=== PATIENT | female | born 1980 | race Caucasian/White ===

== ENCOUNTER 2017-10-10 08:32 | Outpatient (CLI) | payer MEDICAID | END 2017-10-10 08:33 | disposition home or self-care (01) | LOC: BICMAMMO 08:32 | PROVIDERS: ATTEND Nurse Practitioner Women's Health | DX: N63.10 Unspecified lump in the right breast, unspecified quadrant (principal); Z80.3 Family history of malignant neoplasm of breast | CPT/HCPCS: 77066; G0279 ==

== ENCOUNTER 2017-11-15 11:40 | Inpatient (IN) | payer MEDICAID, SELFPAY ==
[2017-11-15] MEDS ORDERED: Promethazine HCl 25 MG/ML VIAL ONE (12:42)
[2017-11-15 12:52] LABS: BHCG - Serum Negative (NEGATIVE); Pregs Control Background? CLEAR/WHITE (CLR/WHITE); Pregs Control Bar Appear? YES (CONTROL BAR)
[2017-11-15 12:57] LABS: Band 1 % (5-11); Hemoglobin 13.8 g/dL (12.0-16.0); Large Platelets SLIGHT; Lymphocytes 18 % (21-51); MDiff Complete? YES; Mean Corpuscular Hemoglobin 29.7 pg (27.0-31.0); Mean Corpuscular Volume 84.8 fL (78.0-98.0); Mean Platelet Volume 12.8 fL (7.4-10.4); Monocytes 5 % (0-10); Neutrophil 74 % (42-75); PLT Morphology Comment Appears Adequate; Platelet Count 197 thou/uL (130-400); RBC Distribution Width 11.4 % (11.5-14.5); Reactive Lymphocytes 2 % (0-10); Red Blood Cell (RBC) Count 4.65 mill/uL (4.20-5.40); Vacuoles SLIGHT; White Blood Cell (WBC) Count 14.6 thou/uL (4.8-10.8)
[2017-11-15 13:02] LABS: ALT (SGPT) 15 U/L (8-55); AST (SGOT) 15 U/L (5-34); Albumin 4.2 g/dL (3.5-5.0); Alkaline Phosphatase 51 U/L (40-150); Anion Gap 15 mmol/L (10-20); BUN (Urea Nitrogen) 9 mg/dL (7.0-18.7); Bilirubin, Total 0.7 mg/dL (0.2-1.2); Calc. Creatinine Clearance 0 mL/min (70-130); Calcium 9.6 mg/dL (7.8-10.44); Carbon Dioxide 16 mmol/L (22-29); Chloride 113 mmol/L (98-107); Estimated GFR-MDRD 86; Globulin 3.1 g/dL (2.4-3.5); Glucose 103 mg/dL (70-105); Lipase 16 U/L (8-78); Potassium 3.3 mmol/L (3.5-5.1); Protein, Total 7.3 g/dL (6.0-8.3); Sodium 141 mmol/L (136-145)
[2017-11-15 14:04] LABS: Bilirubin Negative (Negative); Blood, Urine Trace (Negative); Clarity Slightly Cloudy (Clear); Glucose, Urine (Dipstick) Negative (Negative); Leukocyte Negative (Negative); Nitrite Negative (Negative); Protein, Urine (Dipstick) Negative (Neg-Trace)
[2017-11-15 14:09] LABS: Bacteria/HPF 1+ HPF (None Seen)
[2017-11-15] MEDS ORDERED: Iopamidol 370 76% 100 ML VIAL ONE (14:50)
[2017-11-15] MEDS ORDERED: Sodium Chloride 0.9% 100 ML ONE (15:35)
[2017-11-15] MEDS ORDERED: Piperacillin/Tazobactam 4.5 GM VIAL ONE (15:35)
--- NOTE | 2017-11-15 15:36 | CT ---
CT OF THE ABDOMEN AND PELVIS WITH IV CONTRAST: INDICATION: Abdominal pain with diarrhea. FINDINGS: No comparisons are available. There is mild bibasilar atelectasis. The gallbladder is surgically absent. No focal hepatic lesion is evident. There is a 1.4 cm hypoden sity in the pancreatic body. The adrenal glands and kidneys appear within normal limits. The spleen is normal-appearing. No free fluid or enlarged lymph nodes are evident. There is wall thickening with scattered diverticula involving the descending colon. No drainable flu id collection is evident. The appendix is surgically absent. The bladder, rectum, and perirectal soft tissues are unremarkable. No definite acute osseous abnorma lity is evident. IMPRESSION: 1. Wall thickening with colonic diverticulosis involving descending colon suspicious for diverticuli tis. No drainable fluid collection is evident. 2. Hypodense lesion involving the pancreatic body, incompletely characterized. This has contrast-en hanced Hounsfield characteristic is 15. Findings may reflect a small cyst adenoma. [facility] is recommended for additional characterization. 3. Cholecystectomy and appendectomy. CODE T POS: [facility]
[2017-11-15] MEDS ORDERED: HYDROcodone/Acetaminophen 5/325 mg Tablet ONE (18:28)
[2017-11-15 19:31] VITALS: BMI 36.8
[2017-11-15] MEDS ORDERED: HYDROcodone/Acetaminophen 5/325 mg Tablet PO PRN ×2 (19:34)
[2017-11-15] MEDS ORDERED: Ondansetron ODT 4 MG TAB SL PRN (19:34)
[2017-11-15] MEDS ORDERED: Dextrose 5 %-0.45 % NaCl 1,000 ML IV SCH (19:45)
[2017-11-15] MEDS ORDERED: Acetaminophen 325 MG TAB PO PRN (19:56)
[2017-11-15] MEDS: Magnesium Oxide 250 MG TAB PO SCH (20:22)
[2017-11-15] MEDS: Topiramate 100 MG TAB PO SCH (20:23)
[2017-11-15] MEDS: Bupropion 150 MG SR TAB PO SCH (20:24)
[2017-11-15] MEDS ORDERED: SELENIUM 100 MCG PO SCH (21:00)
--- NOTE | 2017-11-15 22:52 | HP ---
CODE STATUS: FULL RESUSCITATION. TIME OF EVALUATION: 10:35 p.m. CHIEF COMPLAINT: Left lower abdominal pain. PRIMARY CARE PHYSICIAN: Cameron. HISTORY OF PRESENT ILLNESS: This is a 37-year-old female patient with past medical history of endome triosis, seizures. She came to the hospital after having moderate left-sided abdominal pain, that hendricks s been gradually getting worse, with no clear triggers, no alleviating factors. The symptoms have be en present for 3 weeks. The patient reports associated diarrhea that is mostly mucus. No specific r adiation. REVIEW OF SYSTEMS: Constitutional: No fever. The patient reported no chill, generalized weakness. Respiratory: No cough or sputum production. No shortness of breath. Cardiovascular: No chest warner n, palpitations, or shortness of breath. Gastrointestinal: The patient reported nausea. No vomitin g. She has diarrhea, abdominal pain, left lower quadrant. HAZ TECH: No dizziness, headache or feeling l ightheaded. Genitourinary: No burning on urination. Extremities: No leg swelling. All other syst ems were reviewed and were negative except for the findings mentioned above. PAST MEDICAL HISTORY: Positive for endometriosis, generalized seizures. PAST SURGICAL HISTORY: Laparoscopic ____ due to endometriosis. PSYCHIATRIC HISTORY: Anxiety and depression. SOCIAL HISTORY: No smoking history, no drugs, no alcohol. FAMILY HISTORY: Mother has diverticulosis, endometriosis. Father has melanoma. ALLERGIES: No known drug allergies. REPORTED MEDICATIONS: Nexium, Topamax, Wellbutrin. PHYSICAL EXAMINATION: VITAL SIGNS: On presentation, blood pressure 134/75 with heart rate 93, respiratory rate was 16, tem perature 98.7, pain is 8/10, oxygen saturation 99% on room air. GENERAL APPEARANCE: The patient is alert, oriented, in mild distress due to pain. HEENT: Eyes, normal conjunctivae. Moist oral mucosa. Anicteric. NECK: No JVD. RESPIRATORY: Bilateral air entry. No rales or wheezing. Symmetric expansion. CARDIOVASCULAR: Normal rate, regular rhythm. No murmurs, no gallop, no edema. ABDOMEN: Soft, normal bowel sounds. MUSCULOSKELETAL: Baseline range of motion and strength. No tenderness. SKIN: Warm and intact. No pallor, no rash, no redness. NEUROLOGIC: Baseline sensory. No evidence of any new focal weakness. Baseline speech. Cranial ner ves seem to be intact. PSYCHIATRIC: The patient is in good mood. No anxiety, oriented, optimal judgment. IMAGING: Radiology report was reviewed. The patient has pancreatic hypodensity is incompletely sangeetha acterized, so we will recommend outpatient MRI for this follow up as per radiologist. Wall thickenin g of the ascending colon with diverticula, suggesting diverticulitis. No abscess or perforation. LABORATORY DATA: Labs were reviewed. White count 14.6 with hemoglobin 13.8, MCV 84, platelet count 197. Sodium 141, potassium 3.3, chloride 113, carbon dioxide 16, anion gap 15, BUN 9, creatinine 0.7 6, GFR 86. LFTs were normal. UA was done. The patient has white count of 4-6. ASSESSMENT AND PLAN: The patient will be placed in the hospital with following medical problems. 1. Acute diverticulitis, seen on the CAT scan, the patient is receiving antibiotics, follow up cultu res, adjust treatment as needed. 2. Possible early stage of sepsis secondary to diverticulitis. The patient has elevated white count of 14, with reported heart rate above 90s, treatment as above. Hydration. 3. Hypokalemia. Potassium 3.3, this is likely secondary to diarrhea, we will replace electrolytes a s needed, this is mild. 4. Non-anion gap metabolic acidosis, with bicarbonate 16, likely due to loss of bicarbonate during d iarrhea. We will treat the underlying condition. 5. Possible urinary tract infection. The patient has white cells in the urine 4-6, we will follow c ultures. The patient is taking antibiotics. 6. Deep venous thrombosis prophylaxis. 7. Seizures. The patient has reported that benzodiazepines ____ seizures, we will reconcile home me dications.
[2017-11-15] MEDS ORDERED: Piperacillin/Tazobactam 3.375 GM in Sodium Chloride 0.9% 100 ML IVPB SCH (23:59)
[2017-11-16] MEDS: Piperacillin/Tazobactam 3.375 GM in Sodium Chloride 0.9% 100 ML IVPB SCH ×5 (00:15→23:32)
[2017-11-16] MEDS ORDERED: HYDROcodone/Acetaminophen 5/325 mg Tablet PO PRN (00:42)
[2017-11-16] MEDS: HYDROcodone/Acetaminophen 5/325 mg Tablet PO PRN ×6 (00:52→23:27)
[2017-11-16] MEDS: Dextrose 5 %-0.45 % NaCl 1,000 ML IV SCH ×4 (02:45→23:34)
[2017-11-16] MEDS: Ondansetron HCl/PF 4 MG/2 ML Vial IVP PRN ×4 (03:12→23:33)
[2017-11-16 04:43] LABS: #Eosinphils 0.1 thou/uL (0.0-0.7); #Lymphocytes 3.6 thou/uL (1.20-3.40); #Monocytes 1.1 thou/uL (0.11-0.59); #Neutrophils 7.9 thou/uL (1.40-6.50); %Basophils 0.3 % (0.0-1.0); %Eosinophils 1.2 % (0.0-10.0); %Lymphocytes 28.2 % (21.0-51.0); %Monocytes 8.4 % (0.0-10.0); Hemoglobin 11.1 g/dL (12.0-16.0); Mean Corpuscular HGB CONC 34.4 g/dL (32.0-36.0); Mean Corpuscular Hemoglobin 31.8 pg (27.0-31.0); Mean Corpuscular Volume 92.4 fL (78.0-98.0); Platelet Count 143 thou/uL (130-400); RBC Distribution Width 12.3 % (11.5-14.5); White Blood Cell (WBC) Count 12.7 thou/uL (4.8-10.8)
[2017-11-16 04:59] LABS: Anion Gap 11 mmol/L (10-20); BUN (Urea Nitrogen) 5 mg/dL (7.0-18.7); Calc. Creatinine Clearance 145 mL/min (70-130); Calcium 8.1 mg/dL (7.8-10.44); Carbon Dioxide 16 mmol/L (22-29); Chloride 116 mmol/L (98-107); Estimated GFR-MDRD 87; Glucose 98 mg/dL (70-105); Sodium 140 mmol/L (136-145)
[2017-11-16] MEDS ORDERED: Promethazine HCl 12.5 MG in Sodium Chloride 0.9% 50 ML IVPB PRN (05:08)
[2017-11-16 05:14] LABS: Potassium 2.9 mmol/L (3.5-5.1)
[2017-11-16] MEDS ORDERED: Potassium Chloride 20 MEQ TAB PO SCH (07:45)
[2017-11-16] MEDS: Bupropion 150 MG SR TAB PO SCH ×2 (08:12→20:43)
[2017-11-16] MEDS: Potassium Chloride 20 MEQ TAB PO SCH ×3 (08:13→20:42)
[2017-11-16] MEDS: Enoxaparin Sodium 40 MG/0.4 ML SYRINGE SC SCH (08:15)
[2017-11-16] MEDS: Topiramate 100 MG TAB PO SCH ×2 (08:24→20:43)
[2017-11-16] MEDS ORDERED: [UNRECOGNIZED DRUG - OTHER] PO SCH (09:00)
--- NOTE | 2017-11-16 11:13 | PDOC.PN ---
- Subjective Encounter Start Date: 11/16/17 Encounter Start Time: 09:35 Subjective: has abd pain over left quadrants -: loss of appetite, still has some nausea - Objective Resuscitation Status: Resuscitation Status FULL:Full Resuscitation MAR Reviewed: Yes Vital Signs & Weight: Vital Signs (12 hours) Temp Pulse Resp BP Pulse Ox 11/16/17 08:00 98.1 F 63 16 98 11/16/17 07:45 98.1 F 63 16 96/66 98 11/16/17 04:28 97.9 F 75 16 96/62 96 11/15/17 23:28 98.1 F 74 18 98/65 97 Weight Weight 195 lb I&O: 11/15/17 11/16/17 11/17/17 06:59 06:59 06:59 Intake Total 2019 Output Total 104 Balance 1915 Result Diagrams: 11/16/17 04:14 11/16/17 04:14 Phys Exam - Physical Examination HEENT: PERRLA, sclera anicteric Neck: no JVD, supple Respiratory: no wheezing, no rales Cardiovascular: RRR, no significant murmur Gastrointestinal: soft, no distention, positive bowel sounds left quadrant pain, no rigidity or guarding Musculoskeletal: no edema, pulses present Neurological: non-focal, moves all 4 limbs Psychiatric: normal affect, A&O x 3 Dx/Plan (1) Acute diverticulitis Code(s): K57.92 - DVTRCLI OF INTEST, PART UNSP, W/O PERF OR ABSCESS W/O BLEED Status: Acute (2) Hypokalemia Code(s): E87.6 - HYPOKALEMIA Status: Acute (3) Metabolic acidosis Code(s): E87.2 - ACIDOSIS Status: Acute (4) Moderate dehydration Code(s): E86.0 - DEHYDRATION Status: Acute - Plan is on zosyn -: CT abd results noted -: GI opinion -: is on zofran, phenergan, norco, morphine prn -: replace K, iv hydration, liq diet * . Review of Systems - Medications/Allergies Allergies/Adverse Reactions: Allergies Allergy/AdvReac Type Severity Reaction Status Date / Time Benzodiazepines Allergy Severe Verified 11/15/17 19:23 Medications: Current Medications Acetaminophen (Tylenol) 650 mg PO Q4H PRN PRN Reason: Headache/Fever or Pain Hydrocodone Bitart/Acetaminophen ([place] 5/325) 1 tab PO Q4H PRN PRN Reason: Mild-Moderate Pain (1-5) Hydrocodone Bitart/Acetaminophen ([place] 5/325) 2 tab PO Q4H PRN PRN Reason: Moderate to Severe Pain (6-10) Last Admin: 11/16/17 10:19 Dose: 2 tab Ascorbic Acid (Vitamin C) 1,000 mg PO DAILY [facility] Bupropion HCl (Wellbutrin Sr) 150 mg PO BID [facility] Last Admin: 11/16/17 08:12 Dose: 150 mg Cyanocobalamin (Vitamin B-12) 2,500 mcg PO 1300 [facility] Enoxaparin Sodium (Lovenox) 40 mg SC 0900 [facility] Last Admin: 11/16/17 08:15 Dose: 40 mg Ferrous Sulfate (Feosol) 325 mg PO 1300 [facility] Piperacillin Sod/Tazobactam (Sod 3.375 gm/ Sodium Chloride) 100 mls @ 200 mls/ hr IVPB Q6HR [facility] Last Admin: 11/16/17 05:26 Dose: 100 mls Dextrose/Sodium Chloride (D5 1/2 Ns) 1,000 mls @ 100 mls/hr IV .Q10H [facility] Last Admin: 11/16/17 02:45 Dose: 1,000 mls Promethazine HCl 12.5 mg/ (Sodium Chloride) 50.5 mls @ 202 mls/hr IVPB Q6H PRN PRN Reason: Nausea/Vomiting Last Admin: 11/16/17 05:22 Dose: 50.5 mls Magnesium Oxide (Magnesium Oxide) 500 mg PO HS [facility] Last Admin: 11/15/17 20:22 Dose: 500 mg (Echinacea Purpurea Extract [Echinacea] 125 Mg) 125 mg PO DAILY [facility] (Selenium [Selenium] (100 Mcg)) 100 mcg PO HS [facility] Ondansetron HCl (Zofran) 4 mg IVP Q6H PRN PRN Reason: Nausea/Vomiting Stop: 11/19/17 04:50 Last Admin: 11/16/17 03:12 Dose: 4 mg Pantoprazole Sodium (Protonix) 40 mg PO QAM-WM [facility] Last Admin: 11/16/17 08:12 Dose: 40 mg Potassium Chloride (K-Dur) 40 meq PO Q6H [facility] Stop: 11/17/17 14:01 Last Admin: 11/16/17 08:13 Dose: Not Given Topiramate (Topamax) 150 mg PO BID [facility] Last Admin: 11/16/17 08:24 Dose: 150 mg
[2017-11-16] MEDS: Ascorbic Acid 500 mg Chewable Tablet PO SCH (11:56)
[2017-11-16] MEDS: Cyanocobalamin (Vitamin B-12) 1,000 MCG TAB PO SCH (13:05)
[2017-11-16] MEDS: Ferrous Sulfate 325 MG TAB PO SCH (13:05)
--- NOTE | 2017-11-16 13:40 | CON ---
DATE OF CONSULTATION: 11/16/2017 HISTORY OF PRESENT ILLNESS: Patient is a 37-year-old female who presented with a 48-hour h istory of left lower quadrant abdominal pain. This was preceded by a few weeks of diarrhea. She brittanyi tom has diarrhea alternating with constipation. She has had no blood in her stool but has had some mucus. She does have some nausea and vomiting, she says when the pain gets severe. Patient underwe nt a colonoscopy by me on 08/25/2015 for change in bowel habits. At that time, she was found to have sigmoid and descending diverticulosis. PAST MEDICAL HISTORY: Significant for seizure disorder, endometriosis, migraine headaches. PAST SURGICAL HISTORY: Includes laparoscopic surgery. SOCIAL HISTORY: She does vape, and does drink occasionally. ALLERGIES: No known allergies. MEDICATIONS: Nexium 40 mg p.o. daily, Topamax 200 mg p.o. b.i.d., Wellbutrin 75 mg 2 p.o. daily. FAMILY HISTORY: Negative for GI or liver disease. REVIEW OF SYSTEMS: Ten systems were reviewed and were negative except for above. PHYSICAL EXAMINATION: GENERAL: Shows white female in no acute distress. VITAL SIGNS: Temperature 98.1, pulse 63, respiratory rate 16, blood pressure 96/66. HEENT: Unremarkable. NECK: Supple. CHEST: Clear. CARDIOVASCULAR: Regular rate and rhythm. ABDOMEN: Soft, tender in the left lower quadrant without rebound or guarding. Bowel sounds are pres ent and normoactive. RECTAL: Deferred. EXTREMITIES: Normal. NEUROLOGIC: Nonfocal. LABORATORY: Shows a white blood cell count of 12.7, hemoglobin 11.1, hematocrit 32.4. Chemistries s how a potassium of 2.9, CO2 16. Serum negative. Urinalysis is essentially negative. CT a bdomen and pelvis shows some thickening of the descending colon suspicious for diverticulitis. There is a hypodense lesion involving the pancreatic body incompletely characterized. Followup MRI was re commended, cholecystectomy, appendectomy is noted. ASSESSMENT: 1. Descending diverticulitis. 2. Left-sided diverticulosis coli. 3. Hypokalemia. 4. Pancreatic cyst. RECOMMENDATIONS: 1. Outpatient MRI of the pancreas. 2. Continue antibiotics. 3. Home when the patient is stable. I suspect she should be able to go tomorrow. 4. Continue antibiotics for 10-14 days. 5. Daily Citrucel once this episode has resolved.
[2017-11-16] MEDS: Magnesium Oxide 250 MG TAB PO SCH (20:43)
[2017-11-17] MEDS: Potassium Chloride 20 MEQ TAB PO SCH ×3 (02:36→14:24)
[2017-11-17 05:25] LABS: #Basophils 0.1 thou/uL (0.0-0.2); #Eosinphils 0.1 thou/uL (0.0-0.7); #Monocytes 0.5 thou/uL (0.11-0.59); %Basophils 1.2 % (0.0-1.0); %Eosinophils 1.9 % (0.0-10.0); %Lymphocytes 45.3 % (21.0-51.0); %Monocytes 6.7 % (0.0-10.0); Hemoglobin 10.7 g/dL (12.0-16.0); Mean Corpuscular Hemoglobin 31.4 pg (27.0-31.0); Mean Corpuscular Volume 92.2 fL (78.0-98.0); Mean Platelet Volume 9.8 fL (7.4-10.4); Platelet Count 142 thou/uL (130-400); RBC Distribution Width 12.3 % (11.5-14.5); Red Blood Cell (RBC) Count 3.41 mill/uL (4.20-5.40); White Blood Cell (WBC) Count 6.7 thou/uL (4.8-10.8)
[2017-11-17] MEDS: Piperacillin/Tazobactam 3.375 GM in Sodium Chloride 0.9% 100 ML IVPB SCH ×2 (05:42→12:22)
[2017-11-17] MEDS: HYDROcodone/Acetaminophen 5/325 mg Tablet PO PRN ×2 (05:44→10:36)
[2017-11-17] MEDS: Dextrose 5 %-0.45 % NaCl 1,000 ML IV SCH (05:45)
[2017-11-17 05:56] LABS: Anion Gap 8 mmol/L (10-20); BUN (Urea Nitrogen) Less than 4 mg/dL (7.0-18.7); Calc. Creatinine Clearance 143 mL/min (70-130); Calcium 8.2 mg/dL (7.8-10.44); Carbon Dioxide 15 mmol/L (22-29); Chloride 121 mmol/L (98-107); Estimated GFR-MDRD 86; Glucose 105 mg/dL (70-105); Potassium 3.8 mmol/L (3.5-5.1); Sodium 140 mmol/L (136-145)
[2017-11-17] MEDS: Enoxaparin Sodium 40 MG/0.4 ML SYRINGE SC SCH (08:53)
[2017-11-17] MEDS: Bupropion 150 MG SR TAB PO SCH (08:53)
[2017-11-17] MEDS: Ascorbic Acid 500 mg Chewable Tablet PO SCH (08:53)
--- NOTE | 2017-11-17 09:25 | PRG ---
DATE OF SERVICE: 11/17/2017. SUBJECTIVE: The patient is having less pain. She is tolerating diet. She is having no fever or chi lls. OBJECTIVE: VITAL SIGNS: Temperature is 98.2, pulse 69, respiratory rate 16, blood pressure 101/67. CHEST: Clear. CARDIOVASCULAR: Regular rate and rhythm. ABDOMEN: Soft, tender in the left lower quadrant, but less so than yesterday. No rebound or guardin g. LABORATORY DATA: Shows a white blood cell count of 6.7, hemoglobin 10.7, hematocrit 31.4. Chemistri es show a CO2 of 15. ASSESSMENT: 1. Descending diverticulitis - clinically improving. 2. Pancreatic cyst. RECOMMENDATIONS: 1. Continue antibiotics as an outpatient for 10-14 days. 2. Outpatient endoscopic ultrasound versus MRCP. 3. Begin Citrucel once this episode has resolved. 4. Stable for discharge from GI standpoint. 5. We will sign off.
[2017-11-17] MEDS: Topiramate 100 MG TAB PO SCH (10:36)
[2017-11-17 11:35] VITALS: BP 124/72; TEMP 98.4
[2017-11-17] MEDS: Cyanocobalamin (Vitamin B-12) 1,000 MCG TAB PO SCH (12:24)
[2017-11-17] MEDS: Ferrous Sulfate 325 MG TAB PO SCH (12:25)
[2017-11-17] MEDS: Ondansetron HCl/PF 4 MG/2 ML Vial IVP PRN (12:27)
--- NOTE | 2017-11-17 12:38 | PDOC.PN ---
- Subjective Encounter Start Date: 11/17/17 Encounter Start Time: 07:00 Subjective: abd pain is better, no nausea - Objective Resuscitation Status: Resuscitation Status FULL:Full Resuscitation MAR Reviewed: Yes Vital Signs & Weight: Vital Signs (12 hours) Temp Pulse Resp BP Pulse Ox 11/17/17 11:35 98.4 F 65 18 124/72 100 11/17/17 08:00 98.2 F 69 16 11/17/17 07:32 98.2 F 69 16 101/67 99 Weight Weight 195 lb I&O: 11/16/17 11/17/17 11/18/17 06:59 06:59 06:59 Intake Total 2018 3900 180 Output Total 104 Balance 1914 3900 180 Result Diagrams: 11/17/17 03:52 11/17/17 03:52 Phys Exam - Physical Examination HEENT: PERRLA, moist MMs Neck: no JVD, supple Respiratory: no wheezing, no rales Cardiovascular: RRR, no significant murmur Gastrointestinal: soft, no distention, positive bowel sounds Musculoskeletal: no edema, pulses present Neurological: non-focal, moves all 4 limbs Psychiatric: normal affect, A&O x 3 Dx/Plan (1) Acute diverticulitis Code(s): K57.92 - DVTRCLI OF INTEST, PART UNSP, W/O PERF OR ABSCESS W/O BLEED Status: Acute (2) Hypokalemia Code(s): E87.6 - HYPOKALEMIA Status: Resolved (3) Metabolic acidosis Code(s): E87.2 - ACIDOSIS Status: Acute (4) Moderate dehydration Code(s): E86.0 - DEHYDRATION Status: Resolved - Plan d/w , stable for dc -: to continue cipro, flagyl and tylenol 3 prn -: to f/u with GI in 3 weeks. * . Review of Systems - Medications/Allergies Allergies/Adverse Reactions: Allergies Allergy/AdvReac Type Severity Reaction Status Date / Time Benzodiazepines Allergy Severe Verified 11/15/17 19:23 Medications: Current Medications Acetaminophen (Tylenol) 650 mg PO Q4H PRN PRN Reason: Headache/Fever or Pain Hydrocodone Bitart/Acetaminophen ([place] 5/325) 1 tab PO Q4H PRN PRN Reason: Mild-Moderate Pain (1-5) Hydrocodone Bitart/Acetaminophen ([place] 5/325) 2 tab PO Q4H PRN PRN Reason: Moderate to Severe Pain (6-10) Last Admin: 11/17/17 10:36 Dose: 2 tab Ascorbic Acid (Vitamin C) 1,000 mg PO DAILY [facility] Last Admin: 11/17/17 08:53 Dose: Not Given Bupropion HCl (Wellbutrin Sr) 150 mg PO BID [facility] Last Admin: 11/17/17 08:53 Dose: 150 mg Cyanocobalamin (Vitamin B-12) 2,500 mcg PO 1300 [facility] Last Admin: 11/17/17 12:24 Dose: Not Given Enoxaparin Sodium (Lovenox) 40 mg SC 0900 [facility] Last Admin: 11/17/17 08:53 Dose: 40 mg Ferrous Sulfate (Feosol) 325 mg PO 1300 [facility] Last Admin: 11/17/17 12:25 Dose: Not Given Piperacillin Sod/Tazobactam (Sod 3.375 gm/ Sodium Chloride) 100 mls @ 200 mls/ hr IVPB Q6HR [facility] Last Admin: 11/17/17 12:22 Dose: 100 mls Dextrose/Sodium Chloride (D5 1/2 Ns) 1,000 mls @ 100 mls/hr IV .Q10H [facility] Last Admin: 11/17/17 05:45 Dose: Not Given Promethazine HCl 12.5 mg/ (Sodium Chloride) 50.5 mls @ 202 mls/hr IVPB Q6H PRN PRN Reason: Nausea/Vomiting Last Admin: 11/16/17 05:22 Dose: 50.5 mls Magnesium Oxide (Magnesium Oxide) 500 mg PO HS [facility] Last Admin: 11/16/17 20:43 Dose: 500 mg Ondansetron HCl (Zofran) 4 mg IVP Q6H PRN PRN Reason: Nausea/Vomiting Stop: 11/19/17 04:50 Last Admin: 11/17/17 12:27 Dose: 4 mg Pantoprazole Sodium (Protonix) 40 mg PO QAM-WM [facility] Last Admin: 11/17/17 08:53 Dose: 40 mg Potassium Chloride (K-Dur) 40 meq PO Q6H [facility] Stop: 11/17/17 14:01 Last Admin: 11/17/17 08:52 Dose: 40 meq Topiramate (Topamax) 150 mg PO BID [facility] Last Admin: 11/17/17 10:36 Dose: 150 mg
--- NOTE | 2017-11-18 00:39 | DIS ---
DATE OF ADMISSION: 11/15/2017 DATE OF DISCHARGE: 11/17/2017 DISCHARGE DISPOSITION: To home. PRIMARY DISCHARGE DIAGNOSES: Acute diverticulitis with moderate dehydration; metabolic acidosis; and hypokalemia, resolving. PROCEDURES DONE DURING HOSPITALIZATION: Abdominal and pelvic CAT scan done showed wall thickening wi th colonic diverticulosis involving descending colon suspicious for diverticulitis. No drainable flu id collection was seen. There is also a hypodense lesion in the pancreatic body. Stool for C. diff and cultures were negative. Had a white count of 14 with discharge numbers of 6.7. Serum test was negative. DISCHARGE MEDICATIONS: Ciprofloxacin 500 mg p.o. twice daily for 10 days, Flagyl 500 mg p.o. 3 times daily for 10 days, Topamax 150 mg twice daily, ferrous sulfate 160 mg p.o. daily, Nexium 40 mg p.o. daily, vitamin B12 of 2500 mcg as before, bupropion extended release 150 mg twice daily, vitamin C 10 00 mg p.o. daily, Tylenol No. 3 q.6 hourly p.r.n. ALLERGIES: BENZODIAZEPINES. INPATIENT CONSULTS: Dr. Ch for Gastroenterology. BRIEF COURSE DURING HOSPITALIZATION: Patient initially got admitted with complaints of abdominal warner n in the left lower quadrant. Initial CT done confirmed diverticulitis. The patient was kept n.p.o. initially due to nausea and vomiting. She was gently hydrated. The patient had moderate dehydratio n with electrolyte abnormalities including hypokalemia and metabolic acidosis. Prior to discharge, s he is tolerating oral diet. Her abdominal pain is slowly resolving. She was evaluated by Dr. Ch f or Gastroenterology. She is being discharged home per Dr. Ch's advice. She needs to continue Cipr o and Flagyl for another 10 days. The patient is to follow up with Dr. Ch in 3 weeks. Please see a [id number] documentation on [facility] for the day of discharge.
[2017-11-19 01:17] LABS: Chlamydia by PCR Not Detected (NotDetected); GC by PCR Not Detected (NotDetected)
== END 2017-11-17 15:35 | disposition home or self-care (01) | DRG 392 ==
LOC: SCSER 11:40 → T4-B 17:03
PROVIDERS: ADMIT Internal Medicine; ATTEND Internal Medicine
DX: K57.92 Diverticulitis of intestine, part unspecified, without perforation or abscess without bleeding (principal); E87.2 Acidosis; K86.2 Cyst of pancreas; E86.0 Dehydration; E87.6 Hypokalemia; F32.9 Major depressive disorder, single episode, unspecified; R56.9 Unspecified convulsions
CPT/HCPCS: 36415; 74177; 80048; 80053; 81003; 81015; 83690; 84703; 85025; 87045; 87046; 87086; 87324; 87449; 87480; 87491; 87510; 87591; 87660; 87899; 96361; 96365; 96367; 96375; 96376; J1650; J2270; J2405; J2543; J2550; J7050

== ENCOUNTER 2018-01-26 09:48 | Outpatient (CLI) | payer OTHER ==
--- NOTE | 2018-01-26 14:19 | MRI ---
MRI OF THE ABDOMEN WITH AND WITHOUT IV CONTRAST UTILIZING A PANCREATIC MASS PROTOCOL: Date: 01/26/18 INDICATION: Pancreatic mass seen on CT of the abdomen and pelvis dated 11/15/17. Patient is also having abdominal pain with nausea and vomiting for 1 week. CONTRAST: Patient received 20 mL of MultiHance for the examination. COMPARISON: CT of the abdomen and pelvis dated 11/15/17. FINDINGS: Corresponding to the hypodense lesion involving the pancreatic body on the comparison CT evaluation d ated 11/15/17 is a T2 hyperintense, T1 hypointense, thin peripherally enhancing lesion. No additional focal lesion is identified. The lesion measures 15.0 x 15.0 mm in its greatest craniocaudad and AP d imensions, respectively. There is no evidence of main pancreatic ductal dilatation. No lymphadenopathy or fluid is present within the retroperitoneum. No focal hepatic lesion is evident . No focal renal lesion is noted. Adrenal glands and spleen are normal appearing. The gallbladder is surgically absent. There are remote appearing compression abnormalities involving T9, T10, and T12. IMPRESSION: 1. Well circumscribed unilocular cystic lesion involving the pancreatic body is most suspicious for pancreatic serous cystadenoma. Follow-up examination in 6-12 months is recommended to document stabil ity. 2. Remote appearing compression abnormalities of T9, T10, and T12. POS: [facility]
== END 2018-01-26 09:49 | disposition home or self-care (01) ==
LOC: MRI 09:48
PROVIDERS: ATTEND Internal Medicine Gastroenterology
DX: R93.3 Abnormal findings on diagnostic imaging of other parts of digestive tract (principal); K86.2 Cyst of pancreas
CPT/HCPCS: 74183

== ENCOUNTER 2018-11-24 22:30 | Emergency (ER) | payer MEDICAID, SELFPAY ==
[2018-11-24] MEDS ORDERED: HYDROcodone/Acetaminophen 5/325 mg Tablet ONE (23:09)
[2018-11-24] MEDS ORDERED: Cyclobenzaprine 10 MG TAB ONE (23:10)
[2018-11-24] MEDS ORDERED: Acetaminophen 500 MG TAB ONE (23:10)
[2018-11-24] MEDS ORDERED: Ketorolac Tromethamine 60 MG/2 ML VIAL ONE (23:10)
== END 2018-11-24 23:30 | disposition home or self-care (01) ==
LOC: SCSER 22:30
DX: M54.5 Low back pain (principal); G43.909 Migraine, unspecified, not intractable, without status migrainosus; F41.9 Anxiety disorder, unspecified; F32.9 Major depressive disorder, single episode, unspecified
CPT/HCPCS: 96372; 99283; J1885

== ENCOUNTER 2024-12-22 13:27 | Outpatient (CLI) | payer OTHER | END 2024-12-22 13:28 | disposition home or self-care (01) | LOC: BICMAMMO 13:27 | PROVIDERS: ATTEND Physician Assistant | DX: Z12.31 Encounter for screening mammogram for malignant neoplasm of breast (principal); M81.0 Age-related osteoporosis without current pathological fracture; R87.1 Abnormal level of hormones in specimens from female genital organs; M85.89 Other specified disorders of bone density and structure, multiple sites; Z79.52 Long term (current) use of systemic steroids | CPT/HCPCS: 77063; 77067; 77080 ==